=== PATIENT | male | born 1960 | race American Indian/Alaskan Native ===

== ENCOUNTER 2024-05-19 17:42 | Emergency (ER) | payer MEDICARE, MEDICAID ==
[~2024-05-19] VITALS: Ht 165.1 cm; Wt 97.7 kg
[2024-05-19 17:55] VITALS: BP 205/107; PULSE 97; RESP 16; TEMP 98; O2SAT 99
== END 2024-05-19 18:36 ==
LOC: ER 17:43
DX: Z02.89 Encounter for other administrative examinations (principal)
CPT/HCPCS: 99283